=== PATIENT | male | born 1945 | race African-American/Black ===

== ENCOUNTER 2020-11-29 08:59 | Emergency (ER) | payer MEDICARE, OTHER ==
[~2020-11-29 08:59] MED LIST: ALDACTONE25 MG PO; AMILORIDE HCL5 MG PO; DIAZEPAM 2MG TAB2 MG PO; ELIQUIS2.5 MG PO; ENDOCET 5-3251 EACH PO; FOLIXAPURE5000 UNIT PO; FUROSEMIDE 40MG40 MG PO; HYDRALAZINE 50M50 MG PO; LIDOCAINE 5% P1 EACH TOP; LOPRESSOR50 MG PO; MAG-OXIDE 400M400 MG PO; MYFORTIC360 MG PO; POTASSIUM CHLO20 ME2 PO; PRINIVIL20 MG PO; PROGRAF0.5 MG PO; PROTONIX 40MG T40 MG PO; SANTYL15 GM TOP; SPIRONOLACTONE25 M1 PO; TACROLIMUS1 MG PO; TOPROL XL 25MG25 MG PO; VALIUM2 MG PO
[2020-11-29 10:26] LABS: BASOPHIL 0.4 % (0-2); EOSINOPHIL 0 % (0-7); HCT 29.1 % (42.0-52.0); MCH 25.2 pg (25.0-31.0); MCHC 28.5 g/dL (32.0-36.0); MCV 88.2 fL (78.0-100.0); MONOCYTE 4.4 % (0-12); MPV 9.3 fL (6.0-9.5); NEUTROPHIL 80.8 % (41-80); NRBC 0; PLT 217 K/uL (150-400); RDW 20.9 % (11.5-14.0); WBC 2.7 K/uL (4.0-10.5)
[2020-11-29 10:27] LABS: HGB 8.3 g/dl (13.2-18.0)
[2020-11-29 11:01] LABS: ALBUMIN 2.7 g/dL (3.4-5.0); BILIRUBIN - TOTAL 0.8 mg/dL (0.2-1.0); BUN/CREAT RATIO (CALC) 33.9 RATIO; CREATININE 1.77 mg/dL (0.67-1.17); GLOBULIN (CALCULATION) 3.8 g/dL; POTASSIUM 3.9 mmol/L (3.5-5.1); TOTAL PROTEIN 6.5 g/dL (6.4-8.2)
== END 2020-11-29 18:49 | disposition other institution (70) ==
LOC: FER 08:59
PROVIDERS: Emergency Medicine
DX: I50.1 Left ventricular failure, unspecified (principal); U07.1 COVID-19; I48.91 Unspecified atrial fibrillation; Z79.899 Other long term (current) drug therapy
CPT/HCPCS: 36415; 71045; 80053; 83880; 85025; 93005; 96374; 96376; J1940; U0002